=== PATIENT | male | born 1985 | race Caucasian/White ===

== ENCOUNTER 2024-10-15 07:29 | Emergency (ER) | payer BC, SELFPAY ==
[2024-10-15 07:32] VITALS: BP 138/96
[2024-10-15 08:04] LABS: Hematocrit 43.2 % (39.0-52.0); Hemoglobin 14.9 g/dL (13.0-18.0); Mean Corp Hgb Conc. 34.5 g/dL (33.0-37.0); Mean Corpuscular Volume 88.0 fL (80.0-94.0); Nucleated Red Blood Cells % 0 % (-); Platelet Count 226 10^3/uL (130-400); Red Cell Dist. Width 12.8 % (11.5-14.5)
[2024-10-15 08:40] LABS: ALT (SGPT) 24 U/L (0-50); AST (SGOT) 23 U/L (17-59); Albumin 4.6 g/dl (3.5-5.0); Alkaline Phosphatase 42 U/L (38-126); Blood Urea Nitrogen 18 mg/dl (9-20); Calcium 9.4 mg/dl (8.4-10.2); Carbon Dioxide 30 mmol/L (22-30); Chloride 107 mmol/L (98-107); Glucose 99 mg/dl (70-99); Potassium 4.8 mmol/L (3.5-5.1); Sodium 141 mmol/L (135-145); Total Protein 7.4 g/dl (6.3-8.2); eGFR > 60.00
--- NOTE | 2024-10-15 08:56 | ED.GENMED ---
History of Present Illness
<Henry Menon MD, Resident - Last Filed: 10/15/24 10:01>
General
Chief Complaint: Fainting/Passed Out
Source: patient and significant other
Time Seen by Provider: 10/15/24 08:53
Nursing documentation reviewed up to this point in time: agreed with
History of Present Illness
History of Present Illness:
38-year-old male with no significant past medical history comes to the ED due to recent syncopal episode this morning while he was at his home. He seemed to have lost consciousness for under a minute and landed on his back after hitting a trash can
on his way down. He says that he had a d�j� vu-like episode and was feeling a bit disoriented and then blacked out. He also felt his heart rate increase. He has had d�j� vu episodes before, especially when he is at the gym. He also has felt
lightheaded and has had vasovagal reactions in the past when dehydrated. Currently reports no shortness of breath, chest pain, headaches, lightheadedness or weakness at this time. He does report taking Benadryl around 9:30 PM last night because he
had some minor rash on bilateral lower extremities following cutting grass on Tuesday.
Past History
<Henry Menon MD, Resident - Last Filed: 10/15/24 10:01>
Past History
ED Past Medical History: None
ED Past Surgical History: Urological (Varicocele repair)
Review of Systems
<Henry Menon MD, Resident - Last Filed: 10/15/24 10:01>
Review of Systems
Allergies reviewed?: Yes
Other source history: family
All Other Systems: ROS reviewed and negative except as documented in HPI and ROS
Constitutional: Reports no symptoms
EENT: Reports no symptoms
Respiratory: Reports no symptoms
Cardiac: Reports no symptoms
ABD/GI: Reports no symptoms
: Reports no symptoms
Musculoskeletal: Reports no symptoms
Skin: Reports no symptoms
Neurological: Reports no symptoms
Endocrine: Reports no symptoms
Hematologic/Lymphatic: Reports no symptoms
Psychiatric: Reports no symptoms
Phy Exam
<Henry Menon MD, Resident - Last Filed: 10/15/24 10:01>
General Physical Exam
General Presentation: well appearing and no apparent distress
General Skin: warm and dry
General Habitus: normal
General Mental: alert
General Hydration: appears well hydrated
Cardiovascular Exam
Cardiovascular Exam: regular rate/rhythm, no edema and no murmur
Pulmonary Exam
Pulmonary Exam: lungs clear, no respiratory distress, no crackles and no wheezing
Gastrointestinal Exam
Gastrointestinal Exam: normal bowel sounds, non tender, soft and non distended
Neurological Exam
Neurological Exam: alert, oriented x3, no motor deficits and no sensory deficits
Musculoskeletal Exam
Musculoskeletal Exam: full ROM, no edema and back tenderness (Minor tenderness in area of mid lumbar back with mild bruising noted on the right side)
Skin Exam
Skin Exam: normal color and warm/dry
Psychiatric Exam
Psychiatric Exam: normal mood/affect
Course
<Henry Menon MD, Resident - Last Filed: 10/15/24 10:01>
Orders/Labs/Results
Orders:
Orders
10/15/24 07:39
EKG [Electrocardiogram (*1)] Urgent
Reason for Study: Syncope
EKG- Treatment ONCE
10/15/24 07:46
Complete Blood Count/With Diff Urgent
Comprehensive Metabolic Panel Urgent
10/15/24 07:46
10/15/24 07:46
Vital Signs
Initial and Last Documented VS:
Initial Vital Signs
Temp Pulse Resp BP Pulse Ox
98.4 F 88 20 138/96 98
10/15/24 07:32 10/15/24 07:32 10/15/24 07:32 10/15/24 07:32 10/15/24 07:32
Last Documented Vital Signs
Temp Pulse Resp BP Pulse Ox
98.4 F 88 20 138/96 98
10/15/24 07:32 10/15/24 07:32 10/15/24 07:32 10/15/24 07:32 10/15/24 09:18
<Ganesh Nava, DO - Last Filed: 10/15/24 10:08>
Orders/Labs/Results
Orders:
Orders
10/15/24 07:39
EKG [Electrocardiogram (*1)] Urgent
Reason for Study: Syncope
EKG- Treatment ONCE
10/15/24 07:46
Complete Blood Count/With Diff Urgent
Comprehensive Metabolic Panel Urgent
10/15/24 07:46
10/15/24 07:46
Vital Signs
Initial and Last Documented VS:
Initial Vital Signs
Temp Pulse Resp BP Pulse Ox
98.4 F 88 20 138/96 98
10/15/24 07:32 10/15/24 07:32 10/15/24 07:32 10/15/24 07:32 10/15/24 07:32
Last Documented Vital Signs
Temp Pulse Resp BP Pulse Ox
98.4 F 88 20 138/96 98
10/15/24 07:32 10/15/24 07:32 10/15/24 07:32 10/15/24 07:32 10/15/24 09:18
<Henry Menon MD, Resident - Last Filed: 10/15/24 10:01>
MDM/Problems Addressed
Differential Diagnosis Includes:
Vasovagal syncope, dehydration related syncope
MDM/Problems Addressed:
38-year-old male with no significant past medical history comes to the ED due to recent syncopal episode this morning.
EKG unremarkable showing normal sinus rhythm, blood test unremarkable showing normal electrolytes, no anemia.
Patient symptomatically doing much better, reports no neurological symptoms at this time.
Multiple things could have contributed to the syncope including dehydration, anxiety, recent Benadryl use.
Discussed with patient that he should follow-up with PCP for further management especially since he has had symptoms similar to this in the past without the syncopal episode
<Henry Menon MD, Resident - Last Filed: 10/15/24 10:01>
*Pulse Oximetry
SaO2: 98
Oxygen Mode of Delivery: Room air
Patient hypoxic: no
*Critical Care Note
Total Time (30-74mins, 75-104mins- exclusive of procedures): Not Applicable
ED Attending Note
<Henry Menon MD, Resident - Last Filed: 10/15/24 10:01>
-
Portions of this chart may have been created with voice recognition software.� Occasional wrong word or��sound alike� substitutions may have occurred due to the inherent limitations of voice recognition software.
<Ganesh Nava, DO - Last Filed: 10/15/24 10:08>
ED Attending Note
Patient seen and examined by attending physician: Yes
I performed a history and physical exam of patient and discussed management with resident, I reviewed resident's note and agree with documented findings and plan of care.: Yes
ED Attending Note:
I reviewed and agree with history and treatment plan by Henry Menon MD.
My exam revealed
Physical Exam
General: no apparent distress, not acutely ill
Neck: supple. no meningeal signs. normal posterior pharynx
Heart: s1/s2 regular rate and rhythm, no murmur. equal radial
pulses.
HEENT: Pupils equal round reactive to light, EOMI
Lungs: no acute respiratory distress. clear bilaterally
Abdomen: normal bowel sounds. not tender. no CVAT
Neuro: alert and oriented. no focal neurological deficits cranial nerves II through XII intact
Skin: no rash
Psychiatric: well kept. interactive and cooperative
Extremities: no edema. no calf tenderness. negative homans. good distal pulses
Patient no distress, suspect vasovagal syncope. No red flags, negative Lyman syncope rule. Stable for discharge follow-up with cardiology routinely for Holter.
Discharge Plan
Departure
Patient Disposition: Home (Routine Discharge)
Date of Disposition: 10/15/24
Time of Disposition: 10:00
Patient with high blood pressure during this ER visit?: Yes
Condition: Good
Covid-19: Not Applicable
Discharge Problem:
Syncope
Instructions: Syncope (Fainting) (DC), BLOOD PRESSURE
Referrals:
Dinh Rodgers MD [Family Provider, Internal Medicine] - Call in 1-3 days for appt
Referral Note: Please follow-up with your PCP for further management
Activity Restrictions/Additional Instructions:
Please follow-up with your PCP regarding this recent episode of syncope.
If your symptoms worsen, you develop a headache, chest pain, shortness of breath and your back worsens in pain, please return to the ED for further evaluation.
Please continue to stay hydrated.
Interventions
Interventions:
*Risk Screen - Suicide Last Done: 10/15/24 07:32
*General Assessment Last Done: 10/15/24 07:32
*Neglect/Abuse Screening Last Done: 10/15/24 07:32
Discharge Date and Time
Print Language: [place]
== END 2024-10-15 11:07 | disposition home or self-care (01) ==
LOC: EMR 07:29
PROVIDERS: EMERGENCY PHYSICIAN Emergency Medicine; FAMILY PHYSICIAN Internal Medicine
DX: R55 Syncope and collapse (principal)
CPT/HCPCS: 99283; 80053; 85025; 93005